=== PATIENT | male | born 1950 | race Caucasian/White ===

== ENCOUNTER → 2018-10-11 | Outpatient (CLI) | payer MEDICARE, BC | END | disposition home or self-care (01) | LOC: CFH 12:56 | PROVIDERS: ATTEND Physician Assistant | DX: Z12.2 Encounter for screening for malignant neoplasm of respiratory organs (principal); L98.9 Disorder of the skin and subcutaneous tissue, unspecified; I25.10 Atherosclerotic heart disease of native coronary artery without angina pectoris; R91.8 Other nonspecific abnormal finding of lung field; I10 Essential (primary) hypertension; E11.9 Type 2 diabetes mellitus without complications; E78.5 Hyperlipidemia, unspecified; E55.9 Vitamin D deficiency, unspecified; J45.909 Unspecified asthma, uncomplicated; F17.210 Nicotine dependence, cigarettes, uncomplicated | CPT/HCPCS: G0297 ==

== ENCOUNTER → 2019-01-15 | Outpatient (CLI) | payer MEDICARE, BC | END | disposition home or self-care (01) | LOC: CFH 07:38 | PROVIDERS: ATTEND Internal Medicine Cardiovascular Disease | DX: I10 Essential (primary) hypertension (principal); R94.31 Abnormal electrocardiogram [ECG] [EKG]; E78.5 Hyperlipidemia, unspecified; J44.9 Chronic obstructive pulmonary disease, unspecified; E11.9 Type 2 diabetes mellitus without complications; F17.200 Nicotine dependence, unspecified, uncomplicated | CPT/HCPCS: 78452; 93017; 93306; A9502 ==

== ENCOUNTER 2019-02-04 09:15 | Day surgery (SDC) | payer MEDICARE, BC ==
[~2019-02-04] VITALS: Ht 172.7 cm; Wt 73.6 kg
[2019-02-04 10:11] VITALS: BP 104/63
[2019-02-04] MEDS ORDERED: ATOR-2 PO (10:24)
[2019-02-04] MEDS ORDERED: ALBU8.5H8 INH (10:24)
[2019-02-04] MEDS ORDERED: METF10007 PO (10:24)
[2019-02-04] MEDS ORDERED: DAPA10TA PO (10:24)
[2019-02-04] MEDS ORDERED: LISI2.5T PO (10:24)
[2019-02-04] MEDS ORDERED: MIDAZOLAM 1 MG/ML, 2ML ONE (11:38)
[2019-02-04] MEDS ORDERED: FENTANYL PF 100 MCG/2ML ONE (11:38)
[2019-02-04] MEDS ORDERED: LIDOCAINE 1%, 20ML ONE (11:39)
[2019-02-04] MEDS ORDERED: HEPARIN 1,000 UNITS/ML, 10ML ONE (11:39)
[2019-02-04] MEDS ORDERED: VERAPAMIL 2.5 MG/ML, 2ML ONE (11:39)
== END 2019-02-04 22:15 | disposition home or self-care (01) ==
LOC: CACL 09:15 → CCU 16:55 → CACL 22:15
PROVIDERS: ATTEND Internal Medicine Cardiovascular Disease
DX: I25.10 Atherosclerotic heart disease of native coronary artery without angina pectoris (principal); J44.9 Chronic obstructive pulmonary disease, unspecified; E11.9 Type 2 diabetes mellitus without complications; F17.210 Nicotine dependence, cigarettes, uncomplicated; Z98.52 Vasectomy status; Z98.890 Other specified postprocedural states; Z88.5 Allergy status to narcotic agent; Z79.84 Long term (current) use of oral hypoglycemic drugs
CPT/HCPCS: 93458; 99156; C1760; C1769; C1894; J2250; J3010; Q9967; G0378; J1644

== ENCOUNTER → 2019-02-12 | Outpatient (CLI) | payer MEDICARE, BC ==
[~2019-02-12] MED LIST: ALBU8.5H8 INH; ATOR-2 PO; DAPA10TA PO; LISI2.5T PO; METF10007 PO
== END | disposition home or self-care (01) ==
LOC: CFH 11:23
PROVIDERS: ATTEND Physician Assistant
DX: R91.8 Other nonspecific abnormal finding of lung field (principal); I25.10 Atherosclerotic heart disease of native coronary artery without angina pectoris
CPT/HCPCS: 71250